=== PATIENT | female | born 1980 | race Caucasian/White ===

== ENCOUNTER 2016-05-21 23:21 | Emergency (ER) | payer MEDICAID ==
[~2016-05-21] VITALS: Ht 160 cm; Wt 103.5 kg
[2016-05-21 23:24] VITALS: BP 123/89
--- NOTE | 2016-05-22 00:53 | NUR ---
PT C/O UPPER BACK PAIN 10/10 WHILE TAKING A SHOWER AT 2200 THIS EVENING. 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 PT ALSO C/O DIARRHEA AT 2000. DENIES N/V; SKIN IS PINK/WARM/DRY; AAOX4 WITH EVEN AND STEADY GAIT; LUNGS CLEAR BL; HR EVEN AND REGULAR; PT DENIES ANY FEVER, CP, SOB, OR COUGH AT THIS TIME; PATIENT STATES PAIN OF 10/10 AT THIS TIME; VSS; PATIENT POSITIONED FOR COMFORT; HOB ELEVATED; BEDRAILS UP X2; BED DOWN. ER MD MADE AWARE OF PT STATUS.
[2016-05-22] MEDS ORDERED: KETOROLAC 60 MG/2 ML VIAL IM ONE (02:10)
[2016-05-22] MEDS ORDERED: DIAZEPAM PFS 10 MG/2 ML SYR IM ONE (02:25)
[2016-05-22 02:59] VITALS: BP 123/89
--- NOTE | 2016-05-22 02:59 | NUR ---
Patient discharged with v/s stable. Written and verbal after care instructions given and explained. Patient alert, oriented and verbalized understanding of instructions. Ambulatory with steady gait. All questions addressed prior to discharge. ID band removed. Patient advised to follow up with PMD. Rx of NORCO, VALIUM, AND MOTRIN given. Patient educated on indication of medication including possible reaction and side effects. Opportunity to ask questions provided and answered.
== END 2016-05-22 02:59 | disposition home or self-care (01) ==
LOC: MED 23:40
DX: M54.6 Pain in thoracic spine (principal); Z88.5 Allergy status to narcotic agent; F17.200 Nicotine dependence, unspecified, uncomplicated
CPT/HCPCS: 81002; 96372; 99284; J1885; J3360

== ENCOUNTER 2017-03-14 15:02 | Emergency (ER) | payer MEDICAID ==
[~2017-03-14] VITALS: Ht 160 cm; Wt 101.8 kg
[2017-03-14 15:08] VITALS: BP 150/98
[2017-03-14] MEDS ORDERED: LORazepam 1 MG TAB PO ONE (15:40)
--- NOTE | 2017-03-14 15:58 | NUR ---
Pt taken to bed 3.
--- NOTE | 2017-03-14 16:00 | NUR ---
36/F c/o anxiety and hearing voices. Denies suicidal ideation or homicidal thoughts. Pt is severely restless, pacing in the room. AOX4, clear speech. No signs of respiratory distress. VSS.
--- NOTE | 2017-03-14 16:01 | NUR ---
lab at bedside for blood draw.
[2017-03-14 16:13] LABS: BASOPHILS # (AUTO) 0.4 K/uL (0.00-0.22); EOSINOPHILS # (AUTO) 0.1 K/uL (0-0.4); HEMATOCRIT 37.3 % (36-48); HEMOGLOBIN 12.6 g/dL (12.0-16.0); LYMPHOCYTES # (AUTO) 3.2 K/uL (2.5-16.5); MEAN CORPUSCULAR HEMOGLOBIN 32 pg (27-31); MEAN CORPUSCULAR HGB CONC 34 g/dL (33-37); MEAN CORPUSCULAR VOLUME 95 fL (80-94); MONOCYTES # (AUTO) 0.6 K/uL (0.8-1.0); NEUTROPHILS # (AUTO) 6.2 K/uL (1.8-7.7); PLATELET COUNT (AUTO) 281 K/uL (140-450); RED BLOOD CELL COUNT(AUTO) 3.91 MIL/uL (4.20-5.40); RED CELL DISTRIBUTION WIDTH 11.6 % (11.6-13.7); WHITE BLOOD COUNT (AUTO) 10.5 K/uL (4.8-10.8)
--- NOTE | 2017-03-14 16:30 | NUR ---
Pt taken to CT via w/c.
[2017-03-14 16:32] LABS: ANION GAP 16.3 (8-16); CARBON DIOXIDE 23.5 mmol/L (21-32); CREATININE 0.9 mg/dL (0.6-1.3); POTASSIUM 3.8 mmol/L (3.5-5.1)
[2017-03-14 16:46] LABS: ALBUMIN 3.9 g/dL (3.4-5.0); FREE T4 (FREE THYROXINE) 0.77 ng/dL (0.76-1.46); THYROID STIMULATING HORMONE 1.15 uIU/mL (0.34-3.74); TOTAL BILIRUBIN 0.3 mg/dL (0.0-1.0)
--- NOTE | 2017-03-14 16:48 | NUR ---
Patient much more relaxed, calm, no leg shaking or restlessness noted.
[2017-03-14] MEDS ORDERED: NACL 0.9% 1,000 ML IV ONE (16:50)
[2017-03-14] MEDS ORDERED: LORATADINE 10 MG TAB PO ONE (17:30)
--- NOTE | 2017-03-14 18:20 | NUR ---
IV removed, catheter intact and site benign. Applied folded 4x4 gauze and tape to stop bleeding.
[2017-03-14 18:23] VITALS: BP 127/88
--- NOTE | 2017-03-14 18:23 | NUR ---
Patient discharged with v/s stable. Written and verbal after care instructions given and explained. Patient alert, oriented and verbalized understanding of instructions. Ambulatory with steady gait. All questions addressed prior to discharge. ID band removed. Patient advised to follow up with PMD. Rx of Medroxyprogesterone, Xanax, and Claritin given. Patient educated on indication of medication including possible reaction and side effects. Opportunity to ask questions provided and answered.
[2017-03-15 06:16] LABS: FOLLICLE STIMULATING HORMONE 6.9 mIU/mL (.); LUTEINIZING HORMONE 5.1 mIU/mL (.)
[2017-03-15 13:29] LABS: PROLACTIN 208.8 ng/mL (4.8-23.3)
== END 2017-03-14 18:23 | disposition home or self-care (01) ==
LOC: MED 15:02
DX: D35.2 Benign neoplasm of pituitary gland (principal); N93.8 Other specified abnormal uterine and vaginal bleeding; F41.9 Anxiety disorder, unspecified; Z88.5 Allergy status to narcotic agent
CPT/HCPCS: 36415; 70450; 80053; 81025; 83001; 83002; 83003; 84146; 84439; 84443; 84484; 85025; 93005; 96360; 96361; 99285; J7030

== ENCOUNTER 2017-04-20 16:39 | Emergency (ER) | payer MEDICAID ==
[~2017-04-20] VITALS: Ht 160 cm; Wt 100.2 kg
[2017-04-20 16:44] VITALS: BP 132/82
--- NOTE | 2017-04-20 17:02 | NUR ---
PT TAKEN TO X-RAY FROM LOBBY.
--- NOTE | 2017-04-20 18:01 | NUR ---
Pt taken to bed 4.
[2017-04-20] MEDS ORDERED: KETOROLAC 30 MG/ML VIAL IVP ONE (18:25)
[2017-04-20] MEDS ORDERED: NACL 0.9% 1,000 ML IV ONE (18:25)
[2017-04-20 18:47] VITALS: BP 132/82
--- NOTE | 2017-04-20 18:47 | NUR ---
Patient discharged with v/s stable. Written and verbal after care instructions given and explained. Patient alert, oriented and verbalized understanding of instructions. Ambulatory with steady gait. All questions addressed prior to discharge. ID band removed. Patient advised to follow up with PMD. Rx of KEFLEX, AND COUGH SYRUP given. Patient educated on indication of medication including possible reaction and side effects. Opportunity to ask questions provided and answered.
== END 2017-04-20 18:47 | disposition home or self-care (01) ==
LOC: MED 16:39
DX: J20.9 Acute bronchitis, unspecified (principal); Z88.5 Allergy status to narcotic agent
CPT/HCPCS: 71046; 99284; J1885; J7030

== ENCOUNTER 2017-10-28 18:32 | Emergency (ER) | payer MEDICAID ==
[~2017-10-28] VITALS: Ht 160 cm; Wt 97.5 kg
[2017-10-28 18:37] VITALS: BP 123/81
--- NOTE | 2017-10-28 18:40 | NUR ---
PT AMBULATES TO BED 3
--- NOTE | 2017-10-28 18:45 | NUR ---
37Y/F BIB MOM AND SISTER C/O RT SIDED BODY PAIN. PT STATES SHE HAS RT SIDED BODY PAIN SINCE YESTERDAY AFTER LIFTING HEAVY OBJECT; 10/10 PAIN SCALE AT THIS TIME; HURTS WHEN PT MOVES AND BREATH AT THIS TIME; BED DOWN; BEDRAIL UP X 1; ER MD AWARE AND NOTIFIED OF PT STATUS. PMH: THYROID TUMOR, ANXIETY
[2017-10-28] MEDS ORDERED: KETOROLAC 60 MG/2 ML VIAL IM ONE (20:25)
[2017-10-28 23:12] VITALS: BP 123/81
--- NOTE | 2017-10-28 23:12 | NUR ---
Patient discharged with v/s stable. Discharged by Dr Ko. Written and verbal after care instructions given and explained. Patient alert, oriented and verbalized understanding of instructions. Ambulatory with steady gait. All questions addressed prior to discharge. ID band removed. Patient advised to follow up with PMD. Rx of Naprosyn given. Patient educated on indication of medication including possible reaction and side effects. Opportunity to ask questions provided and answered.
== END 2017-10-28 23:12 | disposition home or self-care (01) ==
LOC: MED 18:32
DX: S23.8XXA Sprain of other specified parts of thorax, initial encounter (principal); Z88.8 Allergy status to other drugs, medicaments and biological substances; Z90.49 Acquired absence of other specified parts of digestive tract; Z85.9 Personal history of malignant neoplasm, unspecified; X58.XXXA Exposure to other specified factors, initial encounter; Y93.89 Activity, other specified; Y92.89 Other specified places as the place of occurrence of the external cause; Y99.8 Other external cause status
CPT/HCPCS: 71250; 81002; 81025; 96372; 99284; J1885

== ENCOUNTER 2018-07-29 11:44 | Emergency (ER) | payer MEDICAID ==
[~2018-07-29] VITALS: Ht 160 cm; Wt 100.4 kg
--- NOTE | 2018-07-29 11:44 | NUR ---
PT BIB SELF C/O VAGINAL BLEEDING X15 DAYS. PT REPORTS GOING THROUGH 6-7 PADS IN 24 HOUR PEROID. PT REPORTS BEING ON BIRTHCONTROL AND STATES THAT USUAL PEROIDS LAST 5 DAYS. PT REPORTS LLQ ABD AND VAGINAL CRAMPING. PT DENIES DISCHARGE OR PAINFUL URINATION. UA DONE, HCG NEG. LAB AT BEDSIDE, ER MD DR ROMO AT BEDSIDE.
[2018-07-29 11:47] VITALS: BP 131/76
--- NOTE | 2018-07-29 12:02 | NUR ---
DR ROMO AT BEDSIDE
--- NOTE | 2018-07-29 12:09 | NUR ---
LAB AT BEDSIDE
[2018-07-29 12:22] LABS: BASOPHILS % (AUTO) 0.5 % (0.0-2.0); EOSINOPHILS # (AUTO) 0.1 K/uL (0-0.4); EOSINOPHILS % (AUTO) 0.8 % (0.0-4.0); HEMATOCRIT 35.7 % (36-48); HEMOGLOBIN 12.1 g/dL (12.0-16.0); LYMPHOCYTES # (AUTO) 2.7 K/uL (2.5-16.5); LYMPHOCYTES % (AUTO) 37.3 % (20.5-51.1); MEAN CORPUSCULAR HEMOGLOBIN 32 pg (27-31); MEAN CORPUSCULAR HGB CONC 34 g/dL (33-37); MEAN CORPUSCULAR VOLUME 96.2 fL (80-94); MONOCYTES # (AUTO) 0.5 K/uL (0.8-1.0); MONOCYTES % (AUTO) 6.4 % (1.7-9.3); PLATELET COUNT (AUTO) 296 K/uL (140-450); RED BLOOD CELL COUNT(AUTO) 3.72 MIL/uL (4.20-5.40); RED CELL DISTRIBUTION WIDTH 12.3 % (11.6-13.7); WHITE BLOOD COUNT (AUTO) 7.4 K/uL (4.8-10.8)
--- NOTE | 2018-07-29 12:27 | NUR ---
US AT BEDSIDE
[2018-07-29 12:30] LABS: ANION GAP 12.9 (8-16); CARBON DIOXIDE 24.1 mmol/L (21-32)
[2018-07-29 12:36] LABS: ALBUMIN 3.7 g/dL (3.4-5.0); TOTAL BILIRUBIN 0.5 mg/dL (0.0-1.0)
[2018-07-29 13:52] VITALS: BP 124/69
--- NOTE | 2018-07-29 13:52 | NUR ---
Patient discharged with v/s stable. Written and verbal after care instructions given and explained. Patient alert, oriented and verbalized understanding of instructions. Ambulatory with steady gait. All questions addressed prior to discharge. ID band removed. Patient advised to follow up with PMD. Rx of MOTRIN & PREMARIN given. Patient educated on indication of medication including possible reaction and side effects. Opportunity to ask questions provided and answered.
== END 2018-07-29 13:52 | disposition home or self-care (01) ==
LOC: MED 11:44
DX: N93.8 Other specified abnormal uterine and vaginal bleeding (principal); F17.200 Nicotine dependence, unspecified, uncomplicated; Z88.5 Allergy status to narcotic agent; Z90.49 Acquired absence of other specified parts of digestive tract; Z85.9 Personal history of malignant neoplasm, unspecified
CPT/HCPCS: 36415; 76856; 80053; 81002; 81025; 85025; 85610; 85730; 99284; Q0092

== ENCOUNTER 2023-06-29 21:18 | Emergency (ER) | payer MEDICAID ==
[~2023-06-29] VITALS: Ht 160 cm; Wt 118.4 kg
[2023-06-29 21:30] VITALS: BP 168/99; PULSE 97; RESP 18; TEMP 98.1; O2SAT 97
[2023-06-29 23:03] LABS: BASOPHILS # (AUTO) 0.1 K/uL (0.00-0.22); BASOPHILS % (AUTO) 0.6 % (0.0-2.0); EOSINOPHILS # (AUTO) 0.2 K/uL (0-0.4); EOSINOPHILS % (AUTO) 2.3 % (0.0-4.0); HEMATOCRIT 36.9 % (36-48); HEMOGLOBIN 12.7 g/dL (12.0-16.0); LYMPHOCYTES % (AUTO) 39.2 % (20.5-51.1); MEAN CORPUSCULAR HEMOGLOBIN 32 pg (27-31); MEAN CORPUSCULAR HGB CONC 34 g/dL (33-37); MEAN CORPUSCULAR VOLUME 93.7 fL (80-94); MONOCYTES # (AUTO) 0.9 K/uL (0.8-1.0); MONOCYTES % (AUTO) 9.2 % (1.7-9.3); NEUTROPHILS % (AUTO) 48.7 % (42.2-75.2); PLATELET COUNT (AUTO) 337 K/uL (140-450); RED BLOOD CELL COUNT(AUTO) 3.94 MIL/uL (4.20-5.40); RED CELL DISTRIBUTION WIDTH 12.9 % (11.6-13.7); WHITE BLOOD COUNT (AUTO) 10.2 K/uL (4.8-10.8)
[2023-06-29] MEDS: KETOROLAC 30 MG/ML VIAL IVP ONE (23:20)
[2023-06-29 23:25] VITALS: BP 142/95; PULSE 88; RESP 16; TEMP 98.9; O2SAT 95
[2023-06-29 23:28] LABS: ANION GAP 14.3 (8-16); CALCIUM 8.8 mg/dL (8.5-10.1); CARBON DIOXIDE 26.2 mmol/L (21-32); CREATININE 0.9 mg/dL (0.6-1.3); POTASSIUM 3.5 mmol/L (3.5-5.1)
[2023-06-29 23:32] LABS: ALBUMIN 3.7 g/dL (3.4-5.0); TOTAL BILIRUBIN 0.3 mg/dL (0.0-1.0); TOTAL PROTEIN, SERUM 6.9 g/dL (6.4-8.2)
[2023-06-30] MEDS ORDERED: BENZ200C4 PO (02:11)
[2023-06-30] MEDS ORDERED: METH4TAB1 PO (02:11)
== END 2023-06-30 02:20 | disposition home or self-care (01) ==
LOC: MED 21:18
DX: R05.9 Cough, unspecified (principal); R07.89 Other chest pain; F17.200 Nicotine dependence, unspecified, uncomplicated; Z71.6 Tobacco abuse counseling; Z79.899 Other long term (current) drug therapy; Z88.5 Allergy status to narcotic agent
CPT/HCPCS: 36415; 36600; 71045; 80048; 80076; 83880; 85025; 85379; 87040; 93005; 96374; 99285; J1885